=== PATIENT | female | born 1960 | race American Indian/Alaskan Native ===

== ENCOUNTER 2016-12-22 18:28 | Emergency (ER) | payer SELFPAY ==
[2016-12-22 19:08] VITALS: BP 134/84
[2016-12-22] MEDS ORDERED: Penicillin V Potassium 250 MG Tab ONE (19:58)
--- NOTE | 2016-12-22 20:13 | EDM.PDOC ---
[id number] 4d ABCESSED TOOTH Time Seen by Provider: 12/22/16 20:08 Source of Information: Reports: Patient History Limitations: Reports: No limitations - History of Present Illness INITIAL COMMENTS - FREE TEXT/NARRATIVE: 56 yo [place] Female c/o tooth pain. Pt. seen by dentist recently and given antibiotics and pain medication. Pt. to be referred to oral surgery Upper Frontal Gums Pain Score (Numeric/FACES): 5 - Related Data Allergies Allergy/AdvReac Type Severity Reaction Status Date / Time No Known Allergies Allergy Verified 12/22/16 19:04 Home Meds: Home Meds Atenolol 50 mg PO DAILY 07/24/14 [History] Naproxen [Naprosyn] 1,000 mg PO BID PRN 06/25/16 [History] Losartan [Cozaar] 25 mg PO DAILY 07/17/16 [History] Pantoprazole Sodium [Protonix] 40 mg PO DAILY 07/17/16 [History] glyBURIDE [Glyburide] 5 mg PO DAILY 07/17/16 [History] metFORMIN HCl [Metformin HCl] 1,000 mg PO BID 11/07/16 [History] Past Medical History HEENT History: Reports: Impaired vision Other HEENT History: wears glasses Cardiovascular History: Reports: Hypertension Respiratory History: Reports: None Gastrointestinal History: Reports: Cholelithiasis Genitourinary History: Reports: Other (see below) Other Genitourinary History: right kidney removed from kidney cancer; hx cysts to left kidney [employer] History: Reports: Other OB/BYN History: hx 10 pregnancies, hysterectomy & tubal ligation Other Musculoskeletal History: scoliosis Neurological History: Reports: None Psychiatric History: Reports: Anxiety Endocrine/Metabolic History: Reports: Diabetes, type II Hematologic History: Reports: None Immunologic History: Reports: None Oncologic (Cancer) History: Reports: Renal Dermatologic History: Reports: None - Infectious Disease History Infectious Disease History: Reports: Chicken pox - Past Surgical History Head Surgeries/Procedures: Reports: None GI Surgical History: Reports: Cholecystectomy Female Surgical History: Reports: section, Hysterectomy Musculoskeletal Surgical History: Reports: Other (see below) Other Musculoskeletal Surgeries/Procedures:: right hand surgery Social & Family History - Family History Family Medical History: Noncontributory - Tobacco Use Smoking Status *Q: Current Every Day Smoker Years of Tobacco use: 30 Packs/Tins Daily: 1 Used Tobacco, but Quit: No Second Hand Smoke Exposure: Yes - Caffeine Use Caffeine Use: Reports: Coffee, Tea - Alcohol Use Days Per Week of Alcohol Use: 0 - Recreational Drug Use Recreational Drug Use: No - Living Situation & Occupation Living situation: Reports: , with family ED ROS GENERAL - Review of Systems Review Of Systems: See Below Constitutional: Reports: no symptoms HEENT: Reports: Dental pain Respiratory: Reports: No Symptoms Cardiovascular: Reports: No symptoms Endocrine: Reports: no symptoms GI/Abdominal: Reports: No symptoms : Reports: no symptoms Musculoskeletal: Reports: no symptoms Skin: Reports: no symptoms Neurological: Reports: No Symptoms Psychiatric: Reports: No symptoms Hematologic/Lymphatic: Reports: no symptoms Immunologic: Reports: no symptoms ED EXAM, GENERAL - Physical Exam Exam: See Below Exam Limited By: No limitations General Appearance: alert, no apparent distress Eye Exam: bilateral eye: PERRL Ears: normal external exam Nose: normal inspection Throat/Mouth: Other (advanced eroded maxillary incisor w/ gingival swelling and possible abscess) Head: atraumatic Neck: normal inspection, supple Respiratory/Chest: no respiratory distress Cardiovascular: normal peripheral pulses, regular rate, rhythm GI/Abdominal: normal bowel sounds Back Exam: normal inspection Extremities: normal inspection, normal range of motion Neurological: alert, oriented Psychiatric: normal affect Skin Exam: Warm, Dry Lymphatic: no adenopathy Course - Vital Signs Last Recorded V/S: Last Vital Signs Temp 36.1 C 12/22/16 19:05 Pulse 73 12/22/16 19:05 Resp 18 12/22/16 19:05 BP 134/84 12/22/16 19:05 Pulse Ox 99 12/22/16 19:05 - Orders/Labs/Meds Meds: Medications Discontinued Medications Generic Name Dose Route Start Last Admin Trade Name Freq PRN Reason Stop Dose Admin Benzocaine 5 ml 12/22/16 20:22 Hurricaine 20% [place] MUCMEM 12/22/16 20:23 ONETIME ONE Lidocaine HCl 15 ml 12/22/16 20:22 Xylocaine 2% Viscous PO 12/22/16 20:23 ONETIME ONE Penicillin V Potassium Confirm 12/22/16 19:58 Veetids Administered 12/22/16 19:59 Dose 1,000 mg .ROUTE .STK-MED ONE Departure - Departure Time of Disposition: 20:12 Disposition: Home, Self-Care 01 Condition: good Clinical Impression: Dental caries extending into dentin, Gingivitis Forms: ED Department Discharge Additional Instructions: Good oral hygiene Take Medication as prescribed only F/U w/ Dentist and Oral Surgeon
[2016-12-22] MEDS ORDERED: Lidocaine 2% Viscous Solution 15 ML Cup PO ONE (20:22)
[2016-12-22] MEDS ORDERED: Benzocaine 20% Oral Spray 59.2 ML Canister MUCMEM ONE (20:22)
== END 2016-12-22 20:28 | disposition home or self-care (01) ==
LOC: DL.ED 18:28
DX: K05.10 Chronic gingivitis, plaque induced (principal); K02.9 Dental caries, unspecified; I10 Essential (primary) hypertension; F41.9 Anxiety disorder, unspecified; E11.9 Type 2 diabetes mellitus without complications; F17.210 Nicotine dependence, cigarettes, uncomplicated; Z79.84 Long term (current) use of oral hypoglycemic drugs; Z79.899 Other long term (current) drug therapy; Z90.710 Acquired absence of both cervix and uterus; Z98.51 Tubal ligation status; Z90.49 Acquired absence of other specified parts of digestive tract
CPT/HCPCS: 99282; 99283

== ENCOUNTER 2017-05-07 18:04 | Emergency (ER) | payer MEDICAID ==
[2017-05-07 20:02] VITALS: BP 140/88
--- NOTE | 2017-05-07 20:08 | EDM.PDOC ---
ED HPI GENERAL MEDICAL PROBLEM - General Chief Complaint: Lower Extremity Injury/Pain Stated Complaint: CANT WALK WELL/KNEE PAIN [phone] Time Seen by Provider: 05/07/17 19:54 Source of Information: Reports: Patient History Limitations: Reports: No Limitations - History of Present Illness INITIAL COMMENTS - FREE TEXT/NARRATIVE: c/o pain to left knee for one week. Denies injury, Was seen at [facility] last week and told arthritis. Started on Naproxyn, not helping. Knee feels like going to give out. Painful to weight bear. Duration: Week(s):, Getting Worse Left Knee Pain Score (Numeric/FACES): 7 - Related Data Allergies Allergy/AdvReac Type Severity Reaction Status Date / Time No Known Allergies Allergy Verified 05/07/17 19:58 Home Meds: Home Meds Atenolol 50 mg PO DAILY 07/24/14 [History] Naproxen [Naprosyn] 1,000 mg PO BID PRN 06/25/16 [History] Losartan [Cozaar] 25 mg PO DAILY 07/17/16 [History] glyBURIDE [Glyburide] 5 mg PO DAILY 07/17/16 [History] metFORMIN HCl [Metformin HCl] 1,000 mg PO BID 11/07/16 [History] Past Medical History HEENT History: Reports: Impaired Vision Other HEENT History: wears glasses Cardiovascular History: Reports: Hypertension Respiratory History: Reports: None Gastrointestinal History: Reports: Cholelithiasis Genitourinary History: Reports: Other (See Below) Other Genitourinary History: right kidney removed from kidney cancer; hx cysts to left kidney [employer] History: Reports: Other OB/BYN History: hx 10 pregnancies, hysterectomy & tubal ligation Other Musculoskeletal History: scoliosis Neurological History: Reports: None Psychiatric History: Reports: Anxiety Endocrine/Metabolic History: Reports: Diabetes, Type II Hematologic History: Reports: None Immunologic History: Reports: None Oncologic (Cancer) History: Reports: Renal Dermatologic History: Reports: None - Infectious Disease History Infectious Disease History: Reports: Chicken Pox - Past Surgical History Head Surgeries/Procedures: Reports: None GI Surgical History: Reports: Cholecystectomy Female Surgical History: Reports: Section, Hysterectomy Musculoskeletal Surgical History: Reports: Other (See Below) Social & Family History - Family History Family Medical History: Noncontributory - Tobacco Use Smoking Status *Q: Current Every Day Smoker Years of Tobacco use: 39 Packs/Tins Daily: 0.5 Used Tobacco, but Quit: No Second Hand Smoke Exposure: Yes - Caffeine Use Caffeine Use: Reports: Soda, Tea - Alcohol Use Days Per Week of Alcohol Use: 0 - Recreational Drug Use Recreational Drug Use: No - Living Situation & Occupation Living situation: Reports: , with Family Review of Systems - Review of Systems Review Of Systems: See Below Constitutional: Reports: No Symptoms Eyes: Reports: No Symptoms Ears: Reports: No Symptoms Nose: Reports: No Symptoms Mouth/Throat: Reports: No Symptoms Cardiovascular: Reports: No Symptoms Musculoskeletal: Reports: Joint Pain (knee) Skin: Reports: No Symptoms Neurological: Reports: No Symptoms ED EXAM, GENERAL - Physical Exam Exam: See Below Exam Limited By: No Limitations General Appearance: Alert, Moderate Distress (with weight bearing) Eye Exam: Bilateral Eye: EOMI Ears: Normal External Exam Nose: Normal Inspection Head: Atraumatic, Normocephalic Respiratory/Chest: No Respiratory Distress, Lungs Clear Cardiovascular: Normal Peripheral Pulses, Regular Rate, Rhythm Peripheral Pulses: 2+: Dorsalis Pedis (L) Back Exam: Normal Inspection Extremities: Limited Range of Motion (pain left knee increased with flexion extension, no laxity. minimal swelling. Crepitus noted.). No: Joint Swelling, Leg Pain, Increased Warmth Neurological: Alert, Oriented, Normal Cognition Psychiatric: Normal Affect Skin Exam: Warm, Dry, Normal Color. No: Erythema, Increased Warmth Course - Vital Signs Last Recorded V/S: Last Vital Signs Temp 97.4 F 05/07/17 20:01 Pulse 76 05/07/17 20:01 Resp 20 05/07/17 20:01 BP 140/88 05/07/17 20:01 Pulse Ox 98 05/07/17 20:01 - Orders/Labs/Meds Labs: Laboratory Tests 05/07/17 05/07/17 05/07/17 Range/Units 20:18 20:18 20:18 WBC 9.4 (5.0-10.0) 10^3/uL RBC 4.52 (4.2-5.4) 10^6/uL Hgb 13.2 (12.0-16.0) g/dL Hct 40.3 (37.0-47.0) % MCV 89.2 (80-100) fL MCH 29.2 (27.0-34.0) pg MCHC 32.8 L (33.0-35.0) g/dL Plt Count 261 (150-450) 10^3/uL Neut % (Auto) 45.4 (42.2-75.2) % Lymph % (Auto) 45.8 (20.5-50.1) % [place] % (Auto) 4.4 (2-8) % Eos % (Auto) 4.0 H (1.0-3.0) % Baso % (Auto) 0.4 (0.0-1.0) % Sodium 140 (135-145) mmol/L Potassium 4.0 (3.6-5.0) mmol/L Chloride 104 (101-111) mmol/L Carbon Dioxide 26.0 (21.0-31.0) mmol/L Anion Gap 14.0 BUN 11 (7-18) mg/dL Creatinine 0.5 L (0.6-1.3) mg/dL Est Cr Clr Drug Dosing 111.70 mL/min Estimated GFR (MDRD) > 60 BUN/Creatinine Ratio 22.00 Glucose 144 H (74-105) mg/dL Calcium 10.0 (8.4-10.2) mg/dl Total Bilirubin 0.6 (0.2-1.0) mg/dL AST 44 H (10-42) IU/L ALT 46 (10-60) IU/L Alkaline Phosphatase 108 (42-121) IU/L C-Reactive Protein 0.8 (0.0-1.3) mg/dL Total Protein 7.4 (6.7-8.2) g/dl Albumin 4.3 (3.2-5.5) g/dl Globulin 3.1 Albumin/Globulin Ratio 1.39 - Radiology Interpretation Free Text/Narrative:: left knee xray negative Departure - Departure Time of Disposition: 22:02 Disposition: Home, Self-Care 01 Condition: Fair Clinical Impression: Left anterior knee pain Strain of left knee Qualifiers: Encounter type: initial encounter Qualified Code(s): S86.912A - Strain of unspecified muscle(s) and tendon(s) at lower leg level, left leg, initial encounter - Discharge Information Instructions: Knee Sprain, [id number] Forms: ED Department Discharge Additional Instructions: tylenol 650mg every 4-6 hours as needed for pain hardeep wrap or neoprene knee sleeve to left knee crutches follow up with primary care for ongoing management of knee pain
[2017-05-07 20:45] LABS: CHLORIDE,CL 104 mmol/L (101-111); SODIUM,NA 140 mmol/L (135-145)
== END 2017-05-07 22:14 | disposition home or self-care (01) ==
LOC: DL.ED 18:04
DX: S86.912A Strain of unspecified muscle(s) and tendon(s) at lower leg level, left leg, initial encounter (principal); H54.7 Unspecified visual loss; I10 Essential (primary) hypertension; E11.9 Type 2 diabetes mellitus without complications; F41.9 Anxiety disorder, unspecified; F17.210 Nicotine dependence, cigarettes, uncomplicated; Z90.49 Acquired absence of other specified parts of digestive tract; Z79.82 Long term (current) use of aspirin; Z79.899 Other long term (current) drug therapy; X58.XXXA Exposure to other specified factors, initial encounter
CPT/HCPCS: 36415; 73562-LT; 80053; 85025; 86140; 99283

== ENCOUNTER 2021-01-18 17:13 | Emergency (ER) | payer MEDICAID, OTHER ==
[2021-01-18 17:41] VITALS: BP 161/68; PULSE 69
--- NOTE | 2021-01-18 17:52 | CR ---
PROCEDURE INFORMATION: Exam: XR Chest Exam date and time: 01/18/2021 5:41 PM Age: 60 years old Clinical indication: Chest pain TECHNIQUE: Imaging protocol: XR of the chest. Views: 1 view. Total images: 1 COMPARISON: CR Chest 2V 06/25/2016 5:47 PM FINDINGS: Lungs: Unremarkable. No consolidation. Pleural spaces: Unremarkable. No pleural effusion. No pneumothorax. Heart/Mediastinum: Mild cardiomegaly. Bones/joints: Unremarkable. IMPRESSION: No acute cardiopulmonary disease.
--- NOTE | 2021-01-18 17:56 | EDM.PDOC ---
ED HPI GENERAL MEDICAL PROBLEM - General Chief Complaint: Chest Pain Stated Complaint: CHEST PAINS / TROUBLE BREATHING Time Seen by Provider: 01/18/21 17:40 Source of Information: Reports: Patient, Old Records, RN, RN Notes Reviewed History Limitations: Reports: No Limitations - History of Present Illness INITIAL COMMENTS - FREE TEXT/NARRATIVE: Kiah is a 60 y/o female with a history of HTN, Hyperlipidemia, DM II, COPD, and current everyday cigarette smoker who presents to the ED via personal vehicle with complaints of diffuse chest pain. Report was called to securities underwriter by KAMILA Zee at [facility] prior to patient's arrival as patient was instructed by this PCP to present to the clinic d/t low Hgb on outpatient labs in the presence of chest pain. The patient reports she has been experiencing chest pain and shortness of breath for approximately one week. Chest characterizes this pain as a tightness to her chest that is aggravated by coughing and deep breathing; the pain is diffuse across the anterior chest wall and radiates through to her back. She denies experiencing pain similar to this in the past. Additionally, she has experienced general malaise, chills, and dry cough. She denies fever, vision changes, headache, sore throat, hemoptysis, dyspepsia, abdominal pain, nausea, vomiting, hematemesis, constipation, diarrhea, melena, or hematochezia. The patient reports a normal appetite up until today, as she has only eaten one yogurt today. She denies alcohol or recreational drug use. - Related Data Allergies Allergy/AdvReac Type Severity Reaction Status Date / Time No Known Allergies Allergy Verified 01/18/21 17:24 Home Meds: Home Meds atenoloL [Atenolol] 50 mg PO DAILY 07/24/14 [History] Naproxen [Naprosyn] 1,000 mg PO BID PRN 06/25/16 [History] Losartan [Cozaar] 25 mg PO DAILY 07/17/16 [History] glyBURIDE [Glyburide] 5 mg PO DAILY 07/17/16 [History] atorvaSTATin [Lipitor] 10 mg PO BEDTIME 01/18/21 [History] Past Medical History HEENT History: Reports: Impaired Vision Other HEENT History: wears glasses Cardiovascular History: Reports: Hypertension Respiratory History: Reports: None Gastrointestinal History: Reports: Cholelithiasis Genitourinary History: Reports: Other (See Below) Other Genitourinary History: right kidney removed from kidney cancer; hx cysts to left kidney DIETITIAN RESEARCH History: Reports: Other DIETITIAN RESEARCH History: hx 10 pregnancies, hysterectomy & tubal ligation Other Musculoskeletal History: scoliosis Neurological History: Reports: None Psychiatric History: Reports: Anxiety Endocrine/Metabolic History: Reports: Diabetes, Type II Hematologic History: Reports: None Immunologic History: Reports: None Oncologic (Cancer) History: Reports: Renal Dermatologic History: Reports: None - Infectious Disease History Infectious Disease History: Reports: Chicken Pox - Past Surgical History Head Surgeries/Procedures: Reports: None GI Surgical History: Reports: Cholecystectomy Female Surgical History: Reports: Section, Hysterectomy Musculoskeletal Surgical History: Reports: Other (See Below) Other Musculoskeletal Surgeries/Procedures:: right hand surgery Social & Family History - Family History Family Medical History: No Pertinent Family History - Tobacco Use Tobacco Use Status *Q: Current Every Day Tobacco User Years of Tobacco use: 30 Packs/Tins Daily: 1 Used Tobacco, but Quit: No Second Hand Smoke Exposure: No - Caffeine Use Caffeine Use: Reports: Soda - Recreational Drug Use Recreational Drug Use: No - Living Situation & Occupation Living situation: Reports: , with Family ED ROS GENERAL - Review of Systems Review Of Systems: Comprehensive ROS is negative, except as noted in HPI. ED EXAM, GENERAL - Physical Exam Exam: See Below Exam Limited By: No Limitations General Appearance: Alert, Mild Distress (Chest pain diffuse to chest), Obese Eye Exam: Bilateral Eye: EOMI, Normal Inspection, PERRL (3mm) Ears: Normal External Exam, Normal Canal, Hearing Grossly Normal, Normal TMs Ear Exam: Bilateral Ear: Auricle Normal, Canal Normal, TM normal Nose: Normal Inspection, Normal Mucosa, No Blood Throat/Mouth: Normal Voice, No Airway Compromise. No: Normal Teeth (Poor dentition), Normal Oropharynx (Dry mucous membranes) Head: Atraumatic, Normocephalic Neck: Normal Inspection, Supple, Non-Tender, Full Range of Motion. No: Lymphadenopathy (L), Lymphadenopathy (R) Respiratory/Chest: Respiratory Distress (SOB), Decreased Breath Sounds, Accessory Muscle Use. No: Chest Non-Tender (Tenderness with deep inspiration and dry cough), Rales, Rhonchi, Wheezing, Stridor, Pleural Rub Cardiovascular: Normal Peripheral Pulses, Regular Rate, Rhythm, No Edema, No Gallop, No JVD, No Rub, Systolic Murmur (2/6 loudest over pulmonic area; No radiation into carotids) Peripheral Pulses: 2+: Radial (L), Radial (R), Dorsalis Pedis (L), Dorsalis Pedis (R) GI/Abdominal: Normal Bowel Sounds, Soft, Non-Tender, No Distention, No Abnormal Bruit, No Mass, Pelvis Stable (Female) Exam: Deferred Rectal (Female) Exam: Deferred Back Exam: Normal Inspection, Full Range of Motion Extremities: Normal Range of Motion, Non-Tender, Normal Capillary Refill, Pedal Edema (+1 pitting, bilaterally) Neurological: Alert, Oriented, CN II-XII Intact, Normal Cognition, Normal Gait, No Motor/Sensory Deficits Psychiatric: Anxious Skin Exam: Warm, Dry, Intact, Normal Color, No Rash. No: Ecchymosis, Erythema, Jaundice, Mottled, Pallor, Petechiae #1 Interpretation EKG Date: 01/18/21 Time: 17:35 Rhythm: NSR Rate (Beats/Min): 66 [place]: LAD-Left [place] Deviation P-Wave: Present QRS: Normal ST-T: Normal QT: Normal TX/PQ Interval: 0.146 Comparison: No Change EKG Interpretation Comments: NSR; LAD; No evidence of acute myocardial ischemia Course - Vital Signs Last Recorded V/S: Last Vital Signs Temp 98.3 F 01/18/21 17:40 Pulse 69 01/18/21 17:40 Resp 16 01/18/21 17:40 BP 161/68 H 01/18/21 17:40 Pulse Ox 100 01/18/21 17:40 - Orders/Labs/Meds Labs: Laboratory Tests 01/18/21 01/18/21 01/18/21 Range/Units 17:29 17:29 17:29 WBC 7.4 (5.0-10.0) 10^3/uL RBC 3.78 L (4.2-5.4) 10^6/uL Hgb 8.5 L D (12.0-16.0) g/dL Hct 28.5 L (37.0-47.0) % MCV 75.4 L D (80-100) fL MCH 22.5 L (27.0-34.0) pg MCHC 29.8 L (33.0-35.0) g/dL Plt Count 198 (150-450) 10^3/uL Neut % (Auto) 53.7 (42.2-75.2) % Lymph % (Auto) 34.4 (20.5-50.1) % [place] % (Auto) 7.0 (2-8) % Eos % (Auto) 4.5 H (1.0-3.0) % Baso % (Auto) 0.4 (0.0-1.0) % PT 10.6 (9.0-12.0) SEC INR 1.1 (0.9-1.2) APTT 26.1 (22.0-34.0) SEC Sodium 141 (136-145) mmol/L Potassium 3.8 (3.5-5.1) mmol/L Chloride 105 (98-107) mmol/L Carbon Dioxide 23 (21-32) mmol/L Anion Gap 16.8 H (7-13) mEq/L BUN 8 (7-18) mg/dL Creatinine 0.86 (0.55-1.02) mg/dL Est Cr Clr Drug Dosing 62.60 mL/min Estimated GFR (MDRD) > 60 BUN/Creatinine Ratio 9.3 (No establ ref range) Glucose 373 H (70-99) mg/dL Lactic Acid (0.4-2.0) mmol/L Calcium 8.1 L (8.5-10.1) mg/dL Magnesium 1.7 L (1.8-2.4) mg/dL Total Bilirubin 0.3 (0.2-1.0) mg/dL AST 32 (15-37) U/L ALT 48 (14-59) U/L Alkaline Phosphatase 269 H (46-116) U/L Troponin I < 0.017 (0.000-0.056) ng/mL C-Reactive Protein 0.2 (0.0-0.9) mg/dL B-Natriuretic Peptide (0-100) pg/ml Total Protein 7.3 (6.4-8.2) g/dL Albumin 3.2 L (3.4-5.0) g/dL Globulin 4.1 Albumin/Globulin Ratio 0.78 Amylase (25-115) U/L Lipase (73-393) U/L Urine Color (YELLOW) Urine Appearance (CLEAR) Urine pH (5.0-9.0) Ur Specific [place] (1.005-1.030) Urine Protein (NEGATIVE) Urine Glucose (UA) (NEGATIVE) Urine Ketones (NEGATIVE) Urine Occult Blood (NEGATIVE) Urine Nitrite (NEGATIVE) Urine Bilirubin (NEGATIVE) Urine Urobilinogen (0.2-1.0) mg/dL Ur Leukocyte Esterase (NEGATIVE) Urine Opiates Screen (NEGATIVE) Ur Oxycodone Screen (NEGATIVE) Urine Methadone Screen (NEGATIVE) Ur Barbiturates Screen (NEGATIVE) U Tricyclic Antidepress (NEGATIVE) Ur Phencyclidine Scrn (NEGATIVE) Ur Amphetamine Screen (NEGATIVE) U Methamphetamines Scrn (NEGATIVE) Urine MDMA Screen (NEGATIVE) U Benzodiazepines Scrn (NEGATIVE) Urine Cocaine Screen (NEGATIVE) U Marijuana (THC) Screen (NEGATIVE) Ethyl Alcohol < 3 (0) mg/dL Influenza Type A RNA (NEGATIVE) Influenza Type B RNA (NEGATIVE) SARS-CoV-2 RNA ([place]) (NEGATIVE) 01/18/21 01/18/21 01/18/21 Range/Units 17:29 17:29 17:29 WBC (5.0-10.0) 10^3/uL RBC (4.2-5.4) 10^6/uL Hgb (12.0-16.0) g/dL Hct (37.0-47.0) % MCV (80-100) fL MCH (27.0-34.0) pg MCHC (33.0-35.0) g/dL Plt Count (150-450) 10^3/uL Neut % (Auto) (42.2-75.2) % Lymph % (Auto) (20.5-50.1) % [place] % (Auto) (2-8) % Eos % (Auto) (1.0-3.0) % Baso % (Auto) (0.0-1.0) % PT (9.0-12.0) SEC INR (0.9-1.2) APTT (22.0-34.0) SEC Sodium (136-145) mmol/L Potassium (3.5-5.1) mmol/L Chloride (98-107) mmol/L Carbon Dioxide (21-32) mmol/L Anion Gap (7-13) mEq/L BUN (7-18) mg/dL Creatinine (0.55-1.02) mg/dL Est Cr Clr Drug Dosing mL/min Estimated GFR (MDRD) BUN/Creatinine Ratio (No establ ref range) Glucose (70-99) mg/dL Lactic Acid 1.6 (0.4-2.0) mmol/L Calcium (8.5-10.1) mg/dL Magnesium (1.8-2.4) mg/dL Total Bilirubin (0.2-1.0) mg/dL AST (15-37) U/L ALT (14-59) U/L Alkaline Phosphatase (46-116) U/L Troponin I (0.000-0.056) ng/mL C-Reactive Protein (0.0-0.9) mg/dL B-Natriuretic Peptide (0-100) pg/ml Total Protein (6.4-8.2) g/dL Albumin (3.4-5.0) g/dL Globulin Albumin/Globulin Ratio Amylase 53 (25-115) U/L Lipase 249 (73-393) U/L Urine Color (YELLOW) Urine Appearance (CLEAR) Urine pH (5.0-9.0) Ur Specific [place] (1.005-1.030) Urine Protein (NEGATIVE) Urine Glucose (UA) (NEGATIVE) Urine Ketones (NEGATIVE) Urine Occult Blood (NEGATIVE) Urine Nitrite (NEGATIVE) Urine Bilirubin (NEGATIVE) Urine Urobilinogen (0.2-1.0) mg/dL Ur Leukocyte Esterase (NEGATIVE) Urine Opiates Screen (NEGATIVE) Ur Oxycodone Screen (NEGATIVE) Urine Methadone Screen (NEGATIVE) Ur Barbiturates Screen (NEGATIVE) U Tricyclic Antidepress (NEGATIVE) Ur Phencyclidine Scrn (NEGATIVE) Ur Amphetamine Screen (NEGATIVE) U Methamphetamines Scrn (NEGATIVE) Urine MDMA Screen (NEGATIVE) U Benzodiazepines Scrn (NEGATIVE) Urine Cocaine Screen (NEGATIVE) U Marijuana (THC) Screen (NEGATIVE) Ethyl Alcohol (0) mg/dL Influenza Type A RNA (NEGATIVE) Influenza Type B RNA (NEGATIVE) SARS-CoV-2 RNA ([place]) (NEGATIVE) 01/18/21 01/18/21 01/18/21 Range/Units 17:29 17:34 17:34 WBC (5.0-10.0) 10^3/uL RBC (4.2-5.4) 10^6/uL Hgb (12.0-16.0) g/dL Hct (37.0-47.0) % MCV (80-100) fL MCH (27.0-34.0) pg MCHC (33.0-35.0) g/dL Plt Count (150-450) 10^3/uL Neut % (Auto) (42.2-75.2) % Lymph % (Auto) (20.5-50.1) % [place] % (Auto) (2-8) % Eos % (Auto) (1.0-3.0) % Baso % (Auto) (0.0-1.0) % PT (9.0-12.0) SEC INR (0.9-1.2) APTT (22.0-34.0) SEC Sodium (136-145) mmol/L Potassium (3.5-5.1) mmol/L Chloride (98-107) mmol/L Carbon Dioxide (21-32) mmol/L Anion Gap (7-13) mEq/L BUN (7-18) mg/dL Creatinine (0.55-1.02) mg/dL Est Cr Clr Drug Dosing mL/min Estimated GFR (MDRD) BUN/Creatinine Ratio (No establ ref range) Glucose (70-99) mg/dL Lactic Acid (0.4-2.0) mmol/L Calcium (8.5-10.1) mg/dL Magnesium (1.8-2.4) mg/dL Total Bilirubin (0.2-1.0) mg/dL AST (15-37) U/L ALT (14-59) U/L Alkaline Phosphatase (46-116) U/L Troponin I (0.000-0.056) ng/mL C-Reactive Protein (0.0-0.9) mg/dL B-Natriuretic Peptide 55 (0-100) pg/ml Total Protein (6.4-8.2) g/dL Albumin (3.4-5.0) g/dL Globulin Albumin/Globulin Ratio Amylase (25-115) U/L Lipase (73-393) U/L Urine Color Light yellow (YELLOW) Urine Appearance Clear (CLEAR) Urine pH 7.0 (5.0-9.0) Ur Specific [place] 1.010 (1.005-1.030) Urine Protein Negative (NEGATIVE) Urine Glucose (UA) 500 H (NEGATIVE) Urine Ketones Negative (NEGATIVE) Urine Occult Blood Negative (NEGATIVE) Urine Nitrite Negative (NEGATIVE) Urine Bilirubin Negative (NEGATIVE) Urine Urobilinogen 0.2 (0.2-1.0) mg/dL Ur Leukocyte Esterase Negative (NEGATIVE) Urine Opiates Screen Negative (NEGATIVE) Ur Oxycodone Screen Negative (NEGATIVE) Urine Methadone Screen Negative (NEGATIVE) Ur Barbiturates Screen Negative (NEGATIVE) U Tricyclic Antidepress Negative (NEGATIVE) Ur Phencyclidine Scrn Negative (NEGATIVE) Ur Amphetamine Screen Negative (NEGATIVE) U Methamphetamines Scrn Negative (NEGATIVE) Urine MDMA Screen Negative (NEGATIVE) U Benzodiazepines Scrn Negative (NEGATIVE) Urine Cocaine Screen Negative (NEGATIVE) U Marijuana (THC) Screen Negative (NEGATIVE) Ethyl Alcohol (0) mg/dL Influenza Type A RNA (NEGATIVE) Influenza Type B RNA (NEGATIVE) SARS-CoV-2 RNA ([place]) (NEGATIVE) 01/18/21 Range/Units 19:25 WBC (5.0-10.0) 10^3/uL RBC (4.2-5.4) 10^6/uL Hgb (12.0-16.0) g/dL Hct (37.0-47.0) % MCV (80-100) fL MCH (27.0-34.0) pg MCHC (33.0-35.0) g/dL Plt Count (150-450) 10^3/uL Neut % (Auto) (42.2-75.2) % Lymph % (Auto) (20.5-50.1) % [place] % (Auto) (2-8) % Eos % (Auto) (1.0-3.0) % Baso % (Auto) (0.0-1.0) % PT (9.0-12.0) SEC INR (0.9-1.2) APTT (22.0-34.0) SEC Sodium (136-145) mmol/L Potassium (3.5-5.1) mmol/L Chloride (98-107) mmol/L Carbon Dioxide (21-32) mmol/L Anion Gap (7-13) mEq/L BUN (7-18) mg/dL Creatinine (0.55-1.02) mg/dL Est Cr Clr Drug Dosing mL/min Estimated GFR (MDRD) BUN/Creatinine Ratio (No establ ref range) Glucose (70-99) mg/dL Lactic Acid (0.4-2.0) mmol/L Calcium (8.5-10.1) mg/dL Magnesium (1.8-2.4) mg/dL Total Bilirubin (0.2-1.0) mg/dL AST (15-37) U/L ALT (14-59) U/L Alkaline Phosphatase (46-116) U/L Troponin I (0.000-0.056) ng/mL C-Reactive Protein (0.0-0.9) mg/dL B-Natriuretic Peptide (0-100) pg/ml Total Protein (6.4-8.2) g/dL Albumin (3.4-5.0) g/dL Globulin Albumin/Globulin Ratio Amylase (25-115) U/L Lipase (73-393) U/L Urine Color (YELLOW) Urine Appearance (CLEAR) Urine pH (5.0-9.0) Ur Specific [place] (1.005-1.030) Urine Protein (NEGATIVE) Urine Glucose (UA) (NEGATIVE) Urine Ketones (NEGATIVE) Urine Occult Blood (NEGATIVE) Urine Nitrite (NEGATIVE) Urine Bilirubin (NEGATIVE) Urine Urobilinogen (0.2-1.0) mg/dL Ur Leukocyte Esterase (NEGATIVE) Urine Opiates Screen (NEGATIVE) Ur Oxycodone Screen (NEGATIVE) Urine Methadone Screen (NEGATIVE) Ur Barbiturates Screen (NEGATIVE) U Tricyclic Antidepress (NEGATIVE) Ur Phencyclidine Scrn (NEGATIVE) Ur Amphetamine Screen (NEGATIVE) U Methamphetamines Scrn (NEGATIVE) Urine MDMA Screen (NEGATIVE) U Benzodiazepines Scrn (NEGATIVE) Urine Cocaine Screen (NEGATIVE) U Marijuana (THC) Screen (NEGATIVE) Ethyl Alcohol (0) mg/dL Influenza Type A RNA Negative (NEGATIVE) Influenza Type B RNA Negative (NEGATIVE) SARS-CoV-2 RNA ([place]) Negative (NEGATIVE) Meds: Medications Discontinued Medications Generic Name Dose Route Start Last Admin Trade Name Freq PRN Reason Stop Dose Admin Al Hydroxide/Mg Hydroxide 30 ml 01/18/21 18:12 01/18/21 18:18 Gi Cocktail Oral Solution 30 Ml PO 01/18/21 18:13 30 ml ONETIME ONE Administration Morphine Sulfate 2 mg 01/18/21 19:08 01/18/21 19:31 Morphine 2 Mg/Ml Syringe IVPUSH 01/18/21 19:09 2 mg ONETIME ONE Administration Morphine Sulfate 1 mg 01/18/21 21:13 01/18/21 21:18 Morphine 2 Mg/Ml Syringe IVPUSH 01/18/21 21:14 1 mg ONETIME ONE Administration Tramadol HCl 50 mg 01/18/21 18:12 01/18/21 18:16 Tramadol 50 Mg Tab PO 01/18/21 18:13 50 mg ONETIME ONE Administration - Radiology Interpretation Free Text/Narrative:: [facility] Final Radiology Report Call: [phone] assistance Online chat: [email or web address] Name: KIAH HERNANDEZ Age: 60Years F Date: 01/18/2021 SSN: -- : 1960 Study: CR CHEST 1V FRONTAL Requesting Physician: Gabriella Steinberg Images: 1 Addl Studies: Provided Clinical History: Chest pain Contrast: Contrast Medium: Contrast Amount: Contrast Method: CONFIDENTIALITY STATEMENT This report is intended only for use by the referring physician, and only in accordance with law. If you received this in error, call [phone]. Page 1 of 1 PROCEDURE INFORMATION: Exam: XR Chest Exam date and time: 01/18/2021 5:41 PM Age: 60 years old Clinical indication: Chest pain TECHNIQUE: Imaging protocol: XR of the chest. Views: 1 view. Total images: 1 COMPARISON: CR Chest 2V 06/25/2016 5:47 PM FINDINGS: Lungs: Unremarkable. No consolidation. Pleural spaces: Unremarkable. No pleural effusion. No pneumothorax. Heart/Mediastinum: Mild cardiomegaly. Bones/joints: Unremarkable. IMPRESSION: No acute cardiopulmonary disease. Thank you for allowing us to participate in the care of your patient. Dictated and Authenticated by: Vic Rojas MD 01/18/2021 5:52 PM Central Time ([place] & [place]) - Re-Assessments/Exams Free Text/Narrative Re-Assessment/Exam: 01/18/21 EKG reveals NSR; Troponin WNL. GI cocktail administered. Hgb recheck here remains low at 8.5 with a microcytic, hypochromic anemia appreciated. Patient attests to chest pain despite GI cocktail. Morphin 2mg administered. Electrolytes, liver function, and kidney function appropriate via CMP. Hemoccult negative. COVID and Influenza negative. Given no etiology for low Hgb, with symptoms of chest pain and shortness of breath, case discussed with Dr. Andrade, hospitalist at in [place]. Findings of examination, lab work, and imaging reviewed with patient. Discussed need for transfer for further investigation into symptomatic anemia. Patient verbalized understanding and agreement with the plan of care. Dr. Andrade kindly agreed to accept patient for transfer. Departure - Departure Time of Disposition: 20:35 Disposition: DC/Tfer to Acute Hospital 02 Reason for Transfer *Q: Primary PCI Indicated Condition: Good Clinical Impression: Hypochromic microcytic anemia, Shortness of breath Chest pain Qualifiers: Chest pain type: chest pain on breathing Qualified Code(s): R07.1 - Chest pain on breathing Referrals: PCP,None [Primary Care Provider] - Forms: ED Department Discharge, Interfacility Transfer [facility] Sepsis Event Note (ED) - Evaluation Sepsis Screening Result: No Definite Risk
[2021-01-18 18:00] LABS: ANION GAP 16.8 mEq/L (7-13); CHLORIDE,CL 105 mmol/L (98-107); SODIUM,NA 141 mmol/L (136-145)
[2021-01-18] MEDS ORDERED: traMADol 50 MG Tab PO ONE (18:12)
[2021-01-18] MEDS ORDERED: GI Cocktail Oral Solution 30 ML PO ONE (18:12)
[2021-01-18 18:13] LABS: PTT,PARTIAL THROMBOPLSTIN TIME 26.1 SEC (22.0-34.0)
[2021-01-18] MEDS ORDERED: Morphine 2 MG/ML SYRINGE IVPUSH ONE ×2 (19:08→21:13)
[2021-01-18 20:26] LABS: CORONAVIRUS COVID-19 NAA NEGATIVE (NEGATIVE)
== END 2021-01-18 22:20 ==
LOC: DL.ED 17:13
DX: R07.1 Chest pain on breathing (principal); D50.9 Iron deficiency anemia, unspecified; I10 Essential (primary) hypertension; E11.9 Type 2 diabetes mellitus without complications; Z79.899 Other long term (current) drug therapy; Z72.0 Tobacco use; Z20.822 Contact with and (suspected) exposure to COVID-19
CPT/HCPCS: 0240U; 36415; 71045; 80053; 80305-QW; 80307; 81003; 82150; 82272; 83605; 83690; 83735; 83880; 84484; 85025; 85610; 85730; 86140; 93005; 93010; 96374; 96376; 99284; 99285-25; A9270-GY; J2270

== ENCOUNTER 2021-12-31 19:26 | Emergency (ER) | payer MEDICAID ==
[2021-12-31 19:59] VITALS: BP 148/80; PULSE 74
[2021-12-31 20:22] LABS: ANION GAP 16.9 mEq/L (7-13); CHLORIDE,CL 107 mmol/L (98-107); SODIUM,NA 140 mmol/L (136-145)
[2021-12-31 20:32] LABS: CORONAVIRUS COVID-19 NAA NEGATIVE (NEGATIVE)
[2021-12-31] MEDS: Iopamidol 755 Mg/ML 100 ML Bottle IVPUSH ONE ×2 (20:43→23:45)
[2021-12-31] MEDS ORDERED: fentaNYL 100 MCG/2 ML SDV IVPUSH ONE (21:02)
[2021-12-31] MEDS ORDERED: Ketorolac 30 MG/ML SDV IVPUSH ONE (21:59)
== END 2021-12-31 23:10 | disposition home or self-care (01) ==
LOC: DL.ED 19:26
DX: J18.9 Pneumonia, unspecified organism (principal); M94.0 Chondrocostal junction syndrome [Tietze]; E11.9 Type 2 diabetes mellitus without complications; I10 Essential (primary) hypertension; Z79.899 Other long term (current) drug therapy; Z20.822 Contact with and (suspected) exposure to COVID-19
CPT/HCPCS: 0240U; 36415; 71045; 80053; 83605; 83735; 83880; 84484; 85025; 85379; 85610; 86140; 87040; 93005; 93010; 96374; 96375; 99283-25; 99284; J1885; J3010; Q9967

== ENCOUNTER 2022-01-11 16:44 | Inpatient (IN) | payer MEDICAID ==
[2022-01-11] MEDS ORDERED: Sodium Chloride 0.9% 1,000 ML IV ONE ×2 (17:45→21:22)
[2022-01-11 18:18] LABS: ANION GAP 16.7 mEq/L (7-13); CHLORIDE,CL 103 mmol/L (98-107); SODIUM,NA 139 mmol/L (136-145)
[2022-01-11] MEDS ORDERED: Potassium Chloride 20 MEQ in Premix Bag 1 BAG IV ONE (18:26)
[2022-01-11 19:04] LABS: CORONAVIRUS COVID-19 NAA NEGATIVE (NEGATIVE); RESPIRATORY SYNCYTIAL VIR NAA NEGATIVE (NEGATIVE)
[2022-01-11 20:21] LABS: AMPHETAMINES,URINE NEGATIVE (NEGATIVE); BARBITURATES,URINE NEGATIVE (NEGATIVE); BENZODIAZEPINE,URINE NEGATIVE (NEGATIVE); MDMA (ECSTASY), URINE NEGATIVE (NEGATIVE); METHADONE,URINE NEGATIVE (NEGATIVE); METHAMPHETAMINES,URINE NEGATIVE (NEGATIVE); OPIATES,URINE NEGATIVE (NEGATIVE); OXYCODONE,URINE POSITIVE (NEGATIVE); PHENCYCLIDINE,URINE NEGATIVE (NEGATIVE); TCA,URINE NEGATIVE (NEGATIVE)
[2022-01-11] MEDS ORDERED: Ondansetron 4 MG/2 ML SDV IVPUSH PRN (23:39)
[2022-01-11] MEDS ORDERED: Ketorolac 30 MG/ML SDV IVPUSH PRN (23:39)
[2022-01-11] MEDS ORDERED: Magnesium Hydroxide 400 MG/5 ML Susp 30 ML Cup PO PRN (23:39)
[2022-01-11] MEDS ORDERED: Polyethylene Glycol 3350 Powder 17 GM Packet PO PRN (23:39)
[2022-01-11] MEDS ORDERED: Albuterol/Ipratropium 3.0-0.5 MG/3 ML Neb Soln NEB PRN (23:39)
[2022-01-11] MEDS ORDERED: Bisacodyl 5 MG Tab PO PRN (23:39)
[2022-01-11] MEDS ORDERED: cefTRIAXone 1 GM in Sodium Chloride 0.9% 50 ML IV ONE (23:53)
[2022-01-11] MEDS ORDERED: Midodrine 2.5 MG Tab PO ONE (23:54)
[2022-01-11] MEDS ORDERED: 50% Dextrose in Water 50 ML Syringe IVPUSH PRN (23:57)
[2022-01-11] MEDS ORDERED: Glucagon,Human Recombinant 1 MG Vial IM PRN (23:57)
[2022-01-12] MEDS: Acetaminophen 325 MG Tab PO PRN ×2 (01:44→08:56)
[2022-01-12] MEDS: Sodium Chloride 0.9% 250 ML IV SCH ×2 (02:58→08:36)
[2022-01-12] MEDS: cefTRIAXone 1 GM in Sodium Chloride 0.9% 50 ML IV SCH (08:55)
[2022-01-12] MEDS: Insulin Lispro 100 Units/ML 3 ML Vial SUBCUT SCH ×3 (08:55→17:35)
[2022-01-12] MEDS: Pantoprazole 40 MG Vial IVPUSH SCH (08:57)
[2022-01-12 09:02] LABS: ANION GAP 16.4 mEq/L (7-13)
[2022-01-12] MEDS ORDERED: Potassium Chloride 10 MEQ Tab.ER PO ONE ×2 (12:00→18:00)
[2022-01-12] MEDS ORDERED: HYDROmorphone 0.5 MG/0.5 ML Syringe IVPUSH PRN (12:49)
[2022-01-12] MEDS: Acetaminophen/HYDROcodone 325-5 MG Tab PO PRN ×2 (13:54→18:23)
[2022-01-12] MEDS ORDERED: Non-Formulary Medication 1 Each (Diclofenac Sodium [Voltaren 1% Gel] 100 GM Tube) TOP PRN (23:02)
[2022-01-12] MEDS ORDERED: Nicotine 21 MG/24 Hr Patch TRDERM SCH (23:30)
[2022-01-13] MEDS: Acetaminophen/HYDROcodone 325-5 MG Tab PO PRN ×3 (02:30→15:30)
[2022-01-13] MEDS: Acetaminophen 325 MG Tab PO PRN (04:51)
[2022-01-13 06:47] LABS: ANION GAP 17.3 mEq/L (7-13); CHLORIDE,CL 110 mmol/L (98-107); SODIUM,NA 140 mmol/L (136-145)
[2022-01-13] MEDS: Insulin Lispro 100 Units/ML 3 ML Vial SUBCUT SCH ×3 (07:43→17:14)
[2022-01-13] MEDS ORDERED: cefTRIAXone 1 GM Vial ONE (07:50)
[2022-01-13] MEDS: Ascorbic Acid 500 MG Tab PO SCH ×2 (08:02→20:58)
[2022-01-13] MEDS: Benzonatate 100 MG Cap PO SCH ×3 (08:03→20:59)
[2022-01-13] MEDS: Ferrous Sulfate 325 MG Tab PO SCH (08:03)
[2022-01-13] MEDS: Gabapentin 300 MG Cap PO SCH ×3 (08:03→20:57)
[2022-01-13] MEDS: Nicotine 21 MG/24 Hr Patch TRDERM SCH (08:04)
[2022-01-13] MEDS: Formoterol/Mometasone 200-5 MCG 8.8 GM Inhaler IH SCH ×2 (08:09→21:27)
[2022-01-13] MEDS: Pantoprazole 40 MG Vial IVPUSH SCH (08:09)
[2022-01-13] MEDS: cefTRIAXone 1 GM in Sodium Chloride 0.9% 50 ML IV SCH (08:15)
[2022-01-13] MEDS ORDERED: Non-Formulary Medication 1 Each (Buprenorphine Hcl/Naloxone Hcl 1 EACH Tab.Subl) SL SCH (09:00)
[2022-01-13] MEDS ORDERED: Non-Formulary Medication 1 Each (Fluticasone Propion/Salmeterol 1 EACH Blst.W.Dev) IH SCH (09:00)
[2022-01-13] MEDS ORDERED: guaiFENesin/Dextromethorphan 100-10 MG/5 ML Soln 5 ML Cup PO PRN (09:38)
[2022-01-13] MEDS: Albuterol/Ipratropium 3.0-0.5 MG/3 ML Neb Soln NEB SCH ×4 (09:47→20:57)
[2022-01-13] MEDS ORDERED: Sodium Chloride 0.9% 10 ML Syringe FLUSH PRN (11:16)
[2022-01-13] MEDS: Acetaminophen/oxyCODONE 325-5 MG Tab PO PRN ×2 (16:52→20:59)
[2022-01-13] MEDS: Baclofen 10 MG Tab PO SCH (20:57)
[2022-01-14 06:44] LABS: CHLORIDE,CL 111 mmol/L (98-107); SODIUM,NA 142 mmol/L (136-145)
[2022-01-14] MEDS ORDERED: Potassium Chloride 10 MEQ Tab.ER PO SCH ×2 (08:00)
[2022-01-14] MEDS: Insulin Lispro 100 Units/ML 3 ML Vial SUBCUT SCH ×3 (08:19→16:39)
[2022-01-14] MEDS: Benzonatate 100 MG Cap PO SCH ×3 (08:30→21:37)
[2022-01-14] MEDS: Gabapentin 300 MG Cap PO SCH ×2 (08:30→21:37)
[2022-01-14] MEDS: Ascorbic Acid 500 MG Tab PO SCH ×2 (08:31→21:36)
[2022-01-14] MEDS: Pantoprazole 40 MG Vial IVPUSH SCH (08:34)
[2022-01-14] MEDS: cefTRIAXone 1 GM in Sodium Chloride 0.9% 50 ML IV SCH (08:40)
[2022-01-14] MEDS: Ferrous Sulfate 325 MG Tab PO SCH (08:52)
[2022-01-14] MEDS: Formoterol/Mometasone 200-5 MCG 8.8 GM Inhaler IH SCH ×2 (08:57→21:40)
[2022-01-14] MEDS: Nicotine 21 MG/24 Hr Patch TRDERM SCH (08:58)
[2022-01-14] MEDS: Albuterol/Ipratropium 3.0-0.5 MG/3 ML Neb Soln NEB SCH ×4 (09:06→21:40)
[2022-01-14] MEDS: Acetaminophen/oxyCODONE 325-5 MG Tab PO PRN ×3 (11:54→23:32)
[2022-01-14] MEDS: Potassium Chloride 10 MEQ Tab.ER PO ONE ×2 (16:29→17:02)
[2022-01-14] MEDS: Baclofen 10 MG Tab PO SCH (21:37)
[2022-01-15] MEDS: Acetaminophen/HYDROcodone 325-5 MG Tab PO PRN ×2 (03:34→08:16)
[2022-01-15 06:35] LABS: ANION GAP 18.3 mEq/L (7-13); CHLORIDE,CL 109 mmol/L (98-107); SODIUM,NA 140 mmol/L (136-145)
[2022-01-15] MEDS ORDERED: Potassium Chloride 10 MEQ Tab.ER PO SCH (08:00)
[2022-01-15] MEDS: Ferrous Sulfate 325 MG Tab PO SCH (08:16)
[2022-01-15] MEDS: Insulin Lispro 100 Units/ML 3 ML Vial SUBCUT SCH (08:16)
[2022-01-15] MEDS: Gabapentin 300 MG Cap PO SCH (08:17)
[2022-01-15] MEDS: Ascorbic Acid 500 MG Tab PO SCH (08:17)
[2022-01-15] MEDS: Nicotine 21 MG/24 Hr Patch TRDERM SCH (08:18)
[2022-01-15] MEDS: Pantoprazole 40 MG Vial IVPUSH SCH (08:19)
[2022-01-15] MEDS ORDERED: Magnesium Sulfate/Water 2 GM in Premix Bag 1 BAG IV ONE (08:28)
[2022-01-15 08:33] VITALS: BP 136/75; PULSE 65
[2022-01-15] MEDS: Benzonatate 100 MG Cap PO SCH (08:38)
[2022-01-15] MEDS: Albuterol/Ipratropium 3.0-0.5 MG/3 ML Neb Soln NEB SCH (08:39)
[2022-01-15] MEDS: cefTRIAXone 1 GM in Sodium Chloride 0.9% 50 ML IV SCH (08:39)
[2022-01-15] MEDS: Formoterol/Mometasone 200-5 MCG 8.8 GM Inhaler IH SCH (09:28)
[2022-01-15] MEDS: Acetaminophen/oxyCODONE 325-5 MG Tab PO PRN (11:39)
== END 2022-01-15 12:05 | disposition home or self-care (01) | DRG 682 ==
LOC: DL.ED 16:44 → DL.MS 21:17 → DL.ED 22:46
PROVIDERS: ADMIT Internal Medicine; ATTEND Internal Medicine
DX: N17.9 Acute kidney failure, unspecified (principal); G92.8 Other toxic encephalopathy; E87.2 Acidosis; E72.20 Disorder of urea cycle metabolism, unspecified; N39.0 Urinary tract infection, site not specified; J40 Bronchitis, not specified as acute or chronic; E87.6 Hypokalemia; E87.8 Other disorders of electrolyte and fluid balance, not elsewhere classified; E11.65 Type 2 diabetes mellitus with hyperglycemia; R74.8 Abnormal levels of other serum enzymes; Z20.822 Contact with and (suspected) exposure to COVID-19; R00.1 Bradycardia, unspecified; I95.9 Hypotension, unspecified; I10 Essential (primary) hypertension; E11.42 Type 2 diabetes mellitus with diabetic polyneuropathy; G89.4 Chronic pain syndrome; E66.9 Obesity, unspecified; Z68.31 Body mass index [BMI] 31.0-31.9, adult; M41.9 Scoliosis, unspecified; G47.00 Insomnia, unspecified; T43.025A Adverse effect of tetracyclic antidepressants, initial encounter; T42.8X5A Adverse effect of antiparkinsonism drugs and other central muscle-tone depressants, initial encounter; T40.495A Adverse effect of other synthetic narcotics, initial encounter; T42.6X5A Adverse effect of other antiepileptic and sedative-hypnotic drugs, initial encounter; H54.7 Unspecified visual loss; F17.210 Nicotine dependence, cigarettes, uncomplicated; Z90.710 Acquired absence of both cervix and uterus; Z90.5 Acquired absence of kidney; Z79.899 Other long term (current) drug therapy; Z79.4 Long term (current) use of insulin; Z79.52 Long term (current) use of systemic steroids; Z79.891 Long term (current) use of opiate analgesic
CPT/HCPCS: 0241U; 36415; 71045; 71250; 74176; 76770; 80048; 80053; 80305-QW; 80307; 81001; 82140; 82150; 82947; 83605; 83690; 83735; 83880; 84443; 84484; 85025; 86140; 87086; 93005; 93010; 94010; 94060; 94640; 96365; 96366; 99232; 99238; 99284; 99285-25; A9270-GY; C9113; J0696; J1815-GY; J2405; J3475; J3480; J3490; J7030; J7050; J7620-GY